=== PATIENT | female | born 1970 | race Caucasian/White ===

== ENCOUNTER 2017-02-16 14:40 | Emergency (ER) | payer MEDICARE, OTHER ==
[2017-02-16 14:48] VITALS: RESP 18; TEMP 98.9
[2017-02-16] MEDS ORDERED: ONDANSETRON 4 MG/2 ML VIAL IVP STA (14:59)
[2017-02-16] MEDS ORDERED: NITROGLYCERIN OINT 1 INCH/GM PACKET TOPICAL STA (14:59)
[2017-02-16] MEDS ORDERED: ASPIRIN 81 MG PO STA (14:59)
[2017-02-16] MEDS ORDERED: SODIUM CHLORIDE 0.9% 1,000 ML IV STA (14:59)
[2017-02-16] MEDS ORDERED: HYDROmorphone 0.5 MG/0.5 ML SYRINGE IVP STA (14:59)
[2017-02-16] MEDS ORDERED: ACETAMINOPHEN TAB 500 MG TAB PO STA (15:01)
--- NOTE | 2017-02-16 15:07 | ED ---
Chest Pain HPI - General Chief Complaint: Chest Pain Stated Complaint: Chest Pain Time Seen by Provider: 02/16/17 14:50 Source: patient Mode of arrival: wheelchair Limitations: no limitations - History of Present Illness Initial Comments: 46 years old female sent from Dr. Usama Betts,s office, she had a chest pain this morning, it lasted for about half an hour she used the nitro and it helped with the pain. He had a stress test done recently. Chest pain has resolved no shortness of breath no pleuritic chest pain no fever no chills. She does have a history of diabetes as well as hypertension and she has smoked for approximately 25 years family history is also significant for coronary artery disease at the past with usual 62 with coronary artery disease. Review of system is unremarkable otherwise - Related Data Home Medications Medication Instructions Recorded Confirmed Albuterol Inhaler [Ventolin Hfa 2 puff INHALATION RT-Q6H PRN 12/20/14 02/16/17 Inhaler] Ergocalciferol (Vitamin D2) 50,000 unit PO Q15D 12/20/14 02/16/17 [Drisdol] Nitroglycerin Sl Tabs [Nitrostat] 0.4 mg SUBLINGUAL Q5M PRN 12/20/14 02/16/17 Tiotropium [place] [Spiriva] 18 mcg INHALATION RT-DAILY 12/20/14 02/16/17 predniSONE 5 mg PO DAILY 12/20/14 02/16/17 DULoxetine HCL [Cymbalta] 90 mg PO DAILY 08/03/15 02/16/17 Fluticasone/Vilanterol [Breo 1 puff INHALATION RT-DAILY 08/03/15 02/16/17 Ellipta 200-25 Mcg INH] Rivaroxaban [Xarelto] 20 mg PO W/SUPPER 08/03/15 02/16/17 Theophylline 24 Hour [Joby-24] 200 mg PO DAILY 08/03/15 02/16/17 Albuterol Nebulized [Ventolin 2.5 mg INHALATION RT-Q6H PRN 09/20/15 02/16/17 Nebulized] Glutamine [l-Glutamine] 500 mg PO DAILY 09/20/15 02/16/17 Ibuprofen [Motrin] 800 mg PO TID PRN 09/20/15 02/16/17 Magnesium Oxide [Mag-Ox] 400 mg PO HS 09/20/15 02/16/17 Diazepam [Valium] 5 mg PO QID PRN 10/03/15 02/16/17 Nystatin 100,000 Unit/ml Susp 5 ml PO QID 10/03/15 02/16/17 [Mycostatin Oral Susp] ARIPiprazole [Abilify] 10 mg PO DAILY 02/16/17 02/16/17 Baclofen [Lioresal] 5 mg PO TID 02/16/17 02/16/17 Calcitonin,[place],Synthetic 1 spray EA NOSTRIL DAILY 02/16/17 02/16/17 [Miacalcin] Cyanocobalamin [Vitamin B-12] 500 mcg PO DAILY 02/16/17 02/16/17 EPINEPHrine (Auto Inject) [Epipen] 0.3 mg IM ONCE PRN 02/16/17 02/16/17 Ferrous Sulfate [Feosol] 325 mg PO BID 02/16/17 02/16/17 Fluticasone Nasal [place] [Flonase 2 spr EA NOSTRIL DAILY 02/16/17 02/16/17 Nasal [place]] Montelukast Sodium [Singulair] 10 mg PO HS 02/16/17 02/16/17 Omeprazole [PriLOSEC] 20 mg PO DAILY 02/16/17 02/16/17 oxyCODONE HCL 15 mg PO Q4H PRN 02/16/17 02/16/17 predniSONE 2 mg PO DAILY 02/16/17 02/16/17 Allergies Allergy/AdvReac Type Severity Reaction Status Date / Time ciprofloxacin Allergy Unknown Unknown Verified 02/16/17 15:33 gabapentin Allergy Unknown Unknown Verified 02/16/17 15:33 acetaminophen [From Tylenol] Allergy Unknown Verified 02/16/17 15:33 cephalexin [From Keflex] Allergy Unknown Verified 02/16/17 15:33 lovastatin Allergy Unknown Verified 02/16/17 15:33 moxifloxacin HCl Allergy Anaphylaxis Verified 02/16/17 15:33 [From Avelox] pravastatin Allergy Unknown Verified 02/16/17 15:33 pregabalin [From Lyrica] Allergy Unknown Verified 02/16/17 15:33 simvastatin Allergy Unknown Verified 02/16/17 15:33 sulfamethoxazole Allergy Unknown Verified 02/16/17 15:33 [From Bactrim] trimethoprim [From Bactrim] Allergy Unknown Verified 02/16/17 15:33 codeine AdvReac Nausea & Verified 02/16/17 15:33 Vomiting verapamil AdvReac Nausea & Verified 02/16/17 15:33 Vomiting Review of Systems ROS Statement: Those systems with pertinent positive or pertinent negative responses have been documented in the HPI. ROS Other: All systems not noted in ROS Statement are negative. EKG Findings - EKG Comments: EKG Findings:: EKG is normal sinus rhythm ventricular rate is 88 MN interval is 122 QRS duration is 88 QT/QTc is 358/09/08/2019 review of this EKG does not reveal any ST elevation or ST depression Past Medical History Past Medical History: Atrial Fibrillation, Asthma, Chest Pain / Angina, COPD, Diabetes Mellitus, Fibromyalgia, GERD/Reflux, Hypertension, Liver Disease, Musculoskeletal Disorder, Osteoarthritis (OA), Pneumonia, Thyroid Disorder Additional Past Medical History / Comment(s): SEE DR MOHAN'S H & P, HX OF KIDNEY STONES, DIET CONTROLLED DIABETES, ANEMIA, ALPHA 1 ANTITRYPSIN DEFICIENCY , NEUROPATHY IN LEGS AND FEET., PNEUMONIA 3 YRS AGO., DDD WITH PAIN IN BACK & NECK. History of Any Multi-Drug Resistant Organisms: MRSA Date of last positivie culture/infection: 2013 MDRO Source:: rt leg Past Surgical History: Breast Surgery, Section, Tubal Ligation, Uterine Ablation Additional Past Surgical History / Comment(s): tumor removed from left breast, biopsy left breast, dayan cataracts - 2 x each eye,. colonoscopy, laparoscopy. CARDIAC ABLATION Past Anesthesia/Blood Transfusion Reactions: No Reported Reaction, Family History of Problems w/ Anesthesia Additional Past Anesthesia/Blood Transfusion Reaction / Comment(s): HX OF BLOOD TRANSFUSION - NO REACTION. SISTER HAS PONV Past Psychological History: Anxiety, Depression, PTSD Smoking Status: Current every day smoker Past Alcohol Use History: None Reported Past Drug Use History: None Reported - Past Family History Mother Family Medical History: Cancer Additional Family Medical History / Comment(s): BREAST CANCER Father Family Medical History: Diabetes Mellitus Additional Family Medical History / Comment(s): ETOH, FROM AN INFECTION. General Exam - General Exam Comments Initial Comments: General: The patient is awake and alert, in no distress, and does not appear acutely ill. Skin: Skin is warm and dry and no rashes or lesions are noted. Eye: Pupils are equal, round and reactive to light, extra-ocular movements are intact; there is normal conjunctiva bilaterally. Ears, nose, mouth and throat: There are moist mucous membranes and no oral lesions. Neck: The neck is supple, there is no tenderness or JVD. Cardiovascular: There is a regular rate and rhythm. No murmur, rub or gallop is appreciated. Respiratory: To auscultation bilateral,exam is consistent with the moderate COPD Gastrointestinal: Soft, non-distended, non-tender abdomen without masses or organomegaly noted. There is no rebound or guarding present. Bowel sounds are unremarkable. Back: There is no tenderness to palpation in the midline. There is no obvious deformity. Musculoskeletal: Normal ROM, no tenderness, There is no pedal edema. There is no calf tenderness or swelling. No cords were appreciated. Neurological: CN II-XII intact, Cranial nerves III through XII are intact. There are no obvious motor or sensory deficits. Coordination appears grossly intact. Speech is normal. Psychiatric: Cooperative, appropriate mood & affect, normal judgment. Limitations: no limitations Course Vital Signs 02/16/17 14:45 Temperature 98.9 F Pulse Rate 98 Respiratory 18 Rate Blood Pressure 135/90 O2 Sat by Pulse 95 Oximetry patient was reassessed at 1600, troponin, EKG, CBC, comprehensive metabolic panel and chest x-ray are unremarkable. Considering her multiple risk factors like hypertension diabetes and family history coronary artery disease and her chest pain episode this morning lasting greater than half an hour recommended 24 hours observation for 3 sets of cardiac markers and cardiology call so she will be admitted to [facility] service Disposition Clinical Impression: Chest pain Disposition: ADMITTED IP TO THIS HOSP Condition: Good Referrals: Usama Betts MD [Primary Care Provider] - 1-2 days
[2017-02-16 15:18] LABS: Basophils # (A) 0.1 k/uL (0-0.2); Basophils % (A) 1 %; CH 27.9; CHCM 33.1; Eosinophils # (A) 0.1 k/uL (0-0.7); Eosinophils % (A) 1 %; HCT 49.3 % (34.0-46.0); HDW 2.63; HGB 15.5 gm/dL (11.4-16.0); Luc # (Auto) 0.07; Luc % (Auto) 1; Lymphocytes # (A) 1.2 k/uL (1.0-4.8); Lymphocytes % (A) 10 %; MCH 26.7 pg (25.0-35.0); MCHC 31.5 g/dL (31.0-37.0); MCV 84.9 fL (80.0-100.0); Mean Platelet Volume 7.5; Monocytes # (A) 0.4 k/uL (0-1.0); Monocytes % (A) 4 %; Neutrophils # (A) 9.4 k/uL (1.3-7.7); Neutrophils % (A) 84 %; RBC 5.81 m/uL (3.80-5.40); RDW 14.9 % (11.5-15.5); WBC 11.2 k/uL (3.8-10.6); WBC (Perox) 11.24
[2017-02-16 15:26] LABS: ALT 37 U/L (9-52); AST 23 U/L (14-36); Alkaline Phosphatase 106 U/L (38-126); Anion Gap 8 mmol/L; Blood Urea Nitrogen 13 mg/dL (7-17); Calcium 9.6 mg/dL (8.4-10.2); Carbon Dioxide 29 mmol/L (22-30); Chloride 103 mmol/L (98-107); Glucose 97 mg/dL (74-99); Magnesium 2.3 mg/dL (1.6-2.3); Non-African American GFR(MDRD) >60 (>60 ml/min/1.73 sqM); Potassium 4.2 mmol/L (3.5-5.1); Sodium 140 mmol/L (137-145); Total Bilirubin 0.3 mg/dL (0.2-1.3); Total Protein 7.1 g/dL (6.3-8.2)
[2017-02-16 15:40] LABS: Creatine Kinase 26 U/L (30-135)
[2017-02-16 15:53] LABS: Creatine Kinase MB 0.7 ng/mL (0.0-2.4); Troponin I <0.012 ng/mL (0.000-0.034)
[2017-02-16 16:05] LABS: Partial Thromboplastin Time 25.8 sec (22.0-30.0); Prothrombin Time 10.5 sec (9.0-12.0)
[2017-02-16] MEDS ORDERED: NITROGLYCERIN SL TABS 0.4 MG TAB SUBLINGUAL PRN ×2 (16:12→16:16)
[2017-02-16] MEDS ORDERED: SODIUM CHLORIDE 0.9% 1,000 ML IV SCH (16:15)
--- NOTE | 2017-02-16 16:15 | XR ---
EXAMINATION TYPE: XR chest 2V DATE OF EXAM: 02/16/2017 COMPARISON: NONE HISTORY: Chest pain TECHNIQUE: Frontal and lateral views of the chest are obtained. FINDINGS: There is no focal air space opacity, pleural effusion, or pneumothorax seen. The cardiac silhouette size is within normal limits. There are overlying cardiac leads. Questionable step-off pos terior lateral right eighth rib. Kyphosis centered near the thoracic lumbar spine. IMPRESSION: Suspect posterior right eighth rib fracture. Correlate for history of trauma.
[2017-02-16] MEDS ORDERED: DIAZEPAM 5 MG TAB PO PRN (16:16)
[2017-02-16] MEDS ORDERED: IBUPROFEN 800 MG TAB PO PRN (16:16)
[2017-02-16] MEDS ORDERED: ALBUTEROL INHALER 60 PUFF/8 GM INHALER INHALATION PRN (16:16)
[2017-02-16] MEDS ORDERED: HYDROmorphone 0.5 MG/0.5 ML SYRINGE IVP PRN (16:16)
[2017-02-16] MEDS ORDERED: ALBUTEROL NEBULIZED 2.5 MG/3 ML INHALATION PRN (16:16)
[2017-02-16] MEDS ORDERED: ERGOCALCIFEROL 50,000 UNIT CAP PO SCH (16:30)
[2017-02-16 16:48] VITALS: BP 133/63; PULSE 107
[2017-02-16] MEDS ORDERED: RIVAROXABAN 10 MG TAB PO SCH (17:30)
[2017-02-16] MEDS ORDERED: NYSTATIN 100,000 UNIT/ML SUSP 500,000 UNIT/5 ML CUP PO SCH (18:00)
[2017-02-16] MEDS ORDERED: MONTELUKAST 10 MG TAB PO SCH (21:00)
[2017-02-16] MEDS ORDERED: FERROUS SULFATE 325 MG TAB PO SCH (21:00)
[2017-02-16] MEDS ORDERED: MAGNESIUM OXIDE 400 MG TAB PO SCH (21:00)
[2017-02-16] MEDS ORDERED: BACLOFEN 10 MG TAB PO SCH (22:00)
[2017-02-17] MEDS ORDERED: PANTOPRAZOLE 40 MG TABLET PO SCH (07:30)
[2017-02-17] MEDS ORDERED: SYMBICORT 160-4.5 MCG INHALER INHALATION SCH (08:00)
[2017-02-17] MEDS ORDERED: IPRATROPIUM 0.5 MG/2.5 ML NEBU INHALATION SCH (08:00)
[2017-02-17] MEDS ORDERED: ASPIRIN 325 MG TAB PO SCH (09:00)
[2017-02-17] MEDS ORDERED: CALCITONIN 200 USP/1 NASAL SPRAY 3.7ML BTL INTRANASAL SCH (09:00)
[2017-02-17] MEDS ORDERED: ARIPiprazole 10 MG TAB PO SCH (09:00)
[2017-02-17] MEDS ORDERED: CYANOCOBALAMIN 500 MCG TAB PO SCH (09:00)
[2017-02-17] MEDS ORDERED: DULoxetine HCL 30 MG CAPSULE.DR PO SCH (09:00)
[2017-02-17] MEDS ORDERED: predniSONE 5 MG TAB PO SCH (09:00)
[2017-02-17] MEDS ORDERED: predniSONE 1 MG TAB PO SCH (09:00)
[2017-02-17] MEDS ORDERED: THEOPHYLLINE 24 HOUR 200 MG CAP.ER.24H PO SCH (09:00)
[2017-02-17] MEDS ORDERED: GLUTAMINE 500 MG PO SCH (09:00)
[2017-02-17] MEDS ORDERED: FLUTICASONE 50MCG/SPRAY NASAL 16GM EA NOSTRIL SCH (09:00)
== END 2017-02-16 17:08 | disposition other institution (70) ==
LOC: EC 14:40 → UNDOADMOB 16:12 → 3OBS 16:12 → EC 17:08
DX: R07.9 Chest pain, unspecified (principal); I48.91 Unspecified atrial fibrillation; J44.9 Chronic obstructive pulmonary disease, unspecified; M79.7 Fibromyalgia; K21.9 Gastro-esophageal reflux disease without esophagitis; I10 Essential (primary) hypertension; M19.90 Unspecified osteoarthritis, unspecified site; E07.9 Disorder of thyroid, unspecified; E11.40 Type 2 diabetes mellitus with diabetic neuropathy, unspecified; F41.9 Anxiety disorder, unspecified; F32.9 Major depressive disorder, single episode, unspecified; F17.200 Nicotine dependence, unspecified, uncomplicated; Z79.52 Long term (current) use of systemic steroids; Z79.51 Long term (current) use of inhaled steroids; Z79.01 Long term (current) use of anticoagulants; Z79.899 Other long term (current) drug therapy; Z88.1 Allergy status to other antibiotic agents; Z88.2 Allergy status to sulfonamides; Z88.5 Allergy status to narcotic agent; Z88.6 Allergy status to analgesic agent; Z88.8 Allergy status to other drugs, medicaments and biological substances
CPT/HCPCS: 99285 ×2; 96374 ×2; 96375 ×2; 96361 ×3; 36415; 93005; 80053; 82550; 82553; 83735; 84484; 85025; 85610; 85730; 71020; J2405; J1170

== ENCOUNTER → 2017-02-25 | Outpatient (CLI) | payer MEDICARE, OTHER ==
--- NOTE | 2017-02-25 10:09 | US ---
EXAMINATION TYPE: US liver DATE OF EXAM: 02/25/2017 COMPARISON: 05/27/2013 CLINICAL HISTORY: E88.01 Alpha 1 Antitrypsin Deficiency. EXAM MEASUREMENTS: Liver Length: 16.9 cm Gallbladder Wall: 0.2 cm CBD: 0.3 cm Right Kidney: 10.3 x 4.5 x 4.8 cm Technically difficult study, morbidly obese patient with a broken rib, unable to scan intercostally. Pancreas: Tail obscured by overlying bowel gas Liver: unable to penetrate, decreased visualization of portal triads suggestive of hepatocellular di sease, upper limits of normal in size Gallbladder: wnl Evidence for sonographic Greco's sign: no CBD: 0.3 Right Kidney: No hydronephrosis or masses seen IMPRESSION: 1. Coarsened heterogenous echotexture compatible with at least mild hepatocellular disease. 2. No sonographic evidence of cholelithiasis or cholecystitis. The previously seen positive sonograph ic Greco sign on the prior examination was not present on today's examination.
[2017-02-25 10:54] LABS: ALT 37 U/L (9-52); AST 21 U/L (14-36); Alkaline Phosphatase 87 U/L (38-126); Anion Gap 8 mmol/L; Blood Urea Nitrogen 16 mg/dL (7-17); Calcium 9.3 mg/dL (8.4-10.2); Carbon Dioxide 31 mmol/L (22-30); Chloride 103 mmol/L (98-107); Glucose 98 mg/dL (74-99); Non-African American GFR(MDRD) >60 (>60 ml/min/1.73 sqM); Potassium 4.1 mmol/L (3.5-5.1); Sodium 142 mmol/L (137-145); Total Bilirubin 0.2 mg/dL (0.2-1.3); Total Protein 6.4 g/dL (6.3-8.2)
[2017-02-25 10:57] LABS: Basophils # (A) 0.1 k/uL (0-0.2); Basophils % (A) 1 %; CH 27.1; CHCM 31.1; Eosinophils # (A) 0.2 k/uL (0-0.7); Eosinophils % (A) 2 %; HCT 49.7 % (34.0-46.0); HDW 2.59; HGB 15.1 gm/dL (11.4-16.0); Hypochromasia Slight; Luc # (Auto) 0.12; Luc % (Auto) 1; Lymphocytes # (A) 1.9 k/uL (1.0-4.8); Lymphocytes % (A) 19 %; MCH 26.6 pg (25.0-35.0); MCHC 30.3 g/dL (31.0-37.0); MCV 87.8 fL (80.0-100.0); Mean Platelet Volume 6.8; Monocytes # (A) 0.5 k/uL (0-1.0); Monocytes % (A) 5 %; Neutrophils # (A) 7.4 k/uL (1.3-7.7); Neutrophils % (A) 73 %; RBC 5.66 m/uL (3.80-5.40); RDW 13.7 % (11.5-15.5); WBC 10.1 k/uL (3.8-10.6); WBC (Perox) 9.92
== END | disposition home or self-care (01) ==
LOC: RADUSWWP 09:05
DX: R93.2 Abnormal findings on diagnostic imaging of liver and biliary tract (principal); E88.01 Alpha-1-antitrypsin deficiency
CPT/HCPCS: 36415; 76705; 80053; 82103; 85025

== ENCOUNTER 2017-08-08 11:01 | Inpatient (IN) | payer MEDICARE, OTHER ==
[2017-08-08] MEDS ORDERED: methylPREDNISolone SOD SUCCI 125 MG/2 ML VIAL IV STA (11:31)
[2017-08-08] MEDS ORDERED: IPRATROPIUM-ALBUTEROL 3 ML NEB INHALATION STA (11:31)
--- NOTE | 2017-08-08 11:55 | ED ---
SOB HPI - General Chief Complaint: Shortness of Breath Stated Complaint: rob, cough Time Seen by Provider: 08/08/17 11:25 Source: patient Mode of arrival: wheelchair Limitations: no limitations - History of Present Illness Initial Comments: Is a 46-year-old female with a history of asthma and emphysema who presents emergency report for worsening shortness of breath, cough, and wheezing. She states that the symptoms started about 4-5 days ago. She was seen by her primary doctor who diagnosed her with acute bronchitis and started her on Augmentin, steroids, and nebulized albuterol. She states that she has been using these therapies without much relief. She states that today she used her albuterol 3 times this morning and it did not improve her symptoms so she decided to come emergency department. The patient is concerned that she may be developing pneumonia. She does continue to smoke despite her diagnoses however has not smoked since being ill. She denies any fevers but does admit to having some chills at home. Her was recently sick with influenza at the beginning of the week. No abdominal pain. No nausea or vomiting. No urinary symptoms. No other acute complaints. - Related Data Home Medications Medication Instructions Recorded Confirmed Albuterol Inhaler [Ventolin Hfa 2 puff INHALATION RT-Q6H PRN 12/20/14 08/08/17 Inhaler] Ergocalciferol (Vitamin D2) 50,000 unit PO Q14D 12/20/14 08/08/17 [Drisdol] Nitroglycerin Sl Tabs [Nitrostat] 0.4 mg SUBLINGUAL Q5M PRN 12/20/14 08/08/17 Tiotropium [place] [Spiriva] 18 mcg INHALATION RT-DAILY 12/20/14 08/08/17 DULoxetine HCL [Cymbalta] 90 mg PO DAILY 08/03/15 08/08/17 Fluticasone/Vilanterol [Breo 1 puff INHALATION RT-DAILY 08/03/15 08/08/17 Ellipta 200-25 Mcg INH] Rivaroxaban [Xarelto] 20 mg PO HS 08/03/15 08/08/17 Theophylline 24 Hour [Joby-24] 200 mg PO HS 08/03/15 08/08/17 Albuterol Nebulized [Ventolin 2.5 mg INHALATION RT-Q6H PRN 09/20/15 08/08/17 Nebulized] Ibuprofen [Motrin] 800 mg PO TID PRN 09/20/15 08/08/17 Magnesium Oxide [Mag-Ox] 400 mg PO HS 09/20/15 08/08/17 Diazepam [Valium] 5 mg PO QID PRN 10/03/15 08/08/17 Nystatin 100,000 Unit/ml Susp 5 ml PO QID 10/03/15 08/08/17 [Mycostatin Oral Susp] Baclofen [Lioresal] 5 mg PO TID PRN 02/16/17 08/08/17 Calcitonin,[place],Synthetic 1 spray EA NOSTRIL DAILY 02/16/17 08/08/17 [Miacalcin] EPINEPHrine (Auto Inject) [Epipen] 0.3 mg IM ONCE PRN 02/16/17 08/08/17 Ferrous Sulfate [Feosol] 325 mg PO DAILY 02/16/17 08/08/17 Fluticasone Nasal [place] [Flonase 2 spr EA NOSTRIL DAILY PRN 02/16/17 08/08/17 Nasal [place]] Montelukast Sodium [Singulair] 10 mg PO HS 02/16/17 08/08/17 Omeprazole [PriLOSEC] 20 mg PO HS 02/16/17 08/08/17 oxyCODONE HCL 15 mg PO Q4H PRN 02/16/17 08/08/17 ARIPiprazole [Abilify] 5 mg PO DAILY 08/08/17 08/08/17 Amoxic-Pot Clav 875-125Mg 1 tab PO Q12HR 08/08/17 08/08/17 [Augmentin 875-125] guaiFENesin [Mucinex] 600 mg PO Q12H 08/08/17 08/08/17 predniSONE 10 mg PO DAILY 08/08/17 08/08/17 Allergies Allergy/AdvReac Type Severity Reaction Status Date / Time ciprofloxacin Allergy Unknown Unknown Verified 08/08/17 12:24 gabapentin Allergy Unknown Unknown Verified 08/08/17 12:24 acetaminophen [From Tylenol] Allergy Unknown Verified 08/08/17 12:24 cephalexin [From Keflex] Allergy Unknown Verified 08/08/17 12:24 lovastatin Allergy Unknown Verified 08/08/17 12:24 moxifloxacin HCl Allergy Anaphylaxis Verified 03/31/18 12:24 [From Avelox] pravastatin Allergy Unknown Verified 08/08/17 12:24 pregabalin [From Lyrica] Allergy Unknown Verified 08/08/17 12:24 simvastatin Allergy Unknown Verified 08/08/17 12:24 sulfamethoxazole Allergy Unknown Verified 08/08/17 12:24 [From Bactrim] trimethoprim [From Bactrim] Allergy Unknown Verified 08/08/17 12:24 codeine AdvReac Nausea & Verified 08/08/17 12:24 Vomiting verapamil AdvReac Nausea & Verified 08/08/17 12:24 Vomiting Review of Systems ROS Statement: Those systems with pertinent positive or pertinent negative responses have been documented in the HPI. ROS Other: All systems not noted in ROS Statement are negative. Past Medical History Past Medical History: Atrial Fibrillation, Asthma, Chest Pain / Angina, COPD, Diabetes Mellitus, Fibromyalgia, GERD/Reflux, Hypertension, Liver Disease, Musculoskeletal Disorder, Osteoarthritis (OA), Pneumonia, Thyroid Disorder Additional Past Medical History / Comment(s): HX OF KIDNEY STONES, DIET CONTROLLED DIABETES, ANEMIA, ALPHA 1 ANTITRYPSIN DEFICIENCY, NEUROPATHY IN LEGS AND FEET., PNEUMONIA 3 YRS AGO., DDD WITH PAIN IN BACK & NECK, RECENT FX RIB RT SIDE "8TH RIB" History of Any Multi-Drug Resistant Organisms: MRSA Date of last positivie culture/infection: 2013 MDRO Source:: rt leg Past Surgical History: Breast Surgery, Section, Tubal Ligation, Uterine Ablation Additional Past Surgical History / Comment(s): tumor removed from left breast, biopsy left breast both benign per pt, dayan cataracts - 2 x each eye,. colonoscopy, laparoscopy.09-24-15 CARDIAC ABLATION Past Anesthesia/Blood Transfusion Reactions: No Reported Reaction, Family History of Problems w/ Anesthesia Additional Past Anesthesia/Blood Transfusion Reaction / Comment(s): HX OF BLOOD TRANSFUSION - NO REACTION. SISTER HAS PONV Past Psychological History: Anxiety, Depression, PTSD Smoking Status: Current every day smoker Past Alcohol Use History: None Reported Past Drug Use History: None Reported - Past Family History Mother Family Medical History: Cancer Additional Family Medical History / Comment(s): BREAST CANCER Father Family Medical History: Diabetes Mellitus Additional Family Medical History / Comment(s): ETOH, FROM AN INFECTION. General Exam - General Exam Comments Initial Comments: Constitutional: Awake alert Appears comfortable Head: Normocephalic atraumatic Eyes: no conjunctival injection No scleral icterus EOMI ENT: TMs clear bilaterally, oropharynx is mildly erythematous without exudate or edema Neck: No JVD Supple Heart: Regular rate rhythm normal S1-S2 no murmurs Lungs: Are bilateral and sternum x-ray wheezes, no respiratory distress, mild conversational dyspnea No rales Abdomen: Soft nondistended nontender Extremities: Non edematous DP pulses intact Radial pulses intact Neuro: A&Ox3 No focal neurologic deficits Psych: Appropriate mood and affect Limitations: no limitations Course Vital Signs 08/08/17 08/08/17 08/08/17 11:10 11:40 11:55 Temperature 98.3 F Pulse Rate 93 92 96 Respiratory 24 Rate Blood Pressure 140/66 O2 Sat by Pulse 91 L Oximetry 08/08/17 12:07 Temperature Pulse Rate 97 Respiratory Rate Blood Pressure O2 Sat by Pulse Oximetry Medical Decision Making - Medical Decision Making Is a 46-year-old female came in for shortness of breath and wheezing. She did have significant wheezing on examination. She was hypoxic in the emergency department 86% at rest and dropped to 78-79% with ambulation. The patient does not of oxygen at home. I'm going to keep her in the hospital for COPD exacerbation. Started on azithromycin. Will be continued on steroids as well. Dr. Turner except see admission would like Dr. Morales to be on the case. The patient was updated the plan and agrees. - Lab Data Result diagrams: 08/08/17 12:00 08/08/17 12:00 Lab Results 08/08/17 08/08/17 Range/Units 12:00 12:00 WBC 9.9 (3.8-10.6) k/uL RBC 5.55 H (3.80-5.40) m/uL Hgb 14.6 (11.4-16.0) gm/dL Hct 46.2 H (34.0-46.0) % MCV 83.2 (80.0-100.0) fL MCH 26.2 (25.0-35.0) pg MCHC 31.6 (31.0-37.0) g/dL RDW 14.9 (11.5-15.5) % Plt Count 292 (150-450) k/uL Neutrophils % 89 % Lymphocytes % 5 % Monocytes % 5 % Eosinophils % 0 % Basophils % 0 % Neutrophils # 8.9 H (1.3-7.7) k/uL Lymphocytes # 0.5 L (1.0-4.8) k/uL Monocytes # 0.5 (0-1.0) k/uL Eosinophils # 0.0 (0-0.7) k/uL Basophils # 0.0 (0-0.2) k/uL Hypochromasia Slight Sodium 146 H (137-145) mmol/L Potassium 4.2 (3.5-5.1) mmol/L Chloride 104 (98-107) mmol/L Carbon Dioxide 30 (22-30) mmol/L Anion Gap 12 mmol/L BUN 16 (7-17) mg/dL Creatinine 0.50 L (0.52-1.04) mg/dL Est GFR (CKD-EPI)AfAm >90 (>60 ml/min/1.73 sqM) Est GFR (CKD-EPI)NonAf >90 (>60 ml/min/1.73 sqM) Glucose 117 H (74-99) mg/dL Calcium 9.4 (8.4-10.2) mg/dL Magnesium 2.5 H (1.6-2.3) mg/dL Total Bilirubin 0.3 (0.2-1.3) mg/dL AST 56 H (14-36) U/L ALT 49 (9-52) U/L Alkaline Phosphatase 79 (38-126) U/L Total Protein 6.4 (6.3-8.2) g/dL Albumin 3.8 (3.5-5.0) g/dL Disposition Clinical Impression: COPD exacerbation Disposition: ADMITTED IP TO THIS HOSP Condition: Stable
[2017-08-08 12:09] LABS: Basophils % (A) 0 %; Eosinophils % (A) 0 %; HCT 46.2 % (34.0-46.0); HGB 14.6 gm/dL (11.4-16.0); Hypochromasia Slight; Lymphocytes # (A) 0.5 k/uL (1.0-4.8); Lymphocytes % (A) 5 %; MCH 26.2 pg (25.0-35.0); MCHC 31.6 g/dL (31.0-37.0); MCV 83.2 fL (80.0-100.0); Mean Platelet Volume 7.4; Monocytes # (A) 0.5 k/uL (0-1.0); Monocytes % (A) 5 %; Neutrophils # (A) 8.9 k/uL (1.3-7.7); Neutrophils % (A) 89 %; Platelet Count 292 k/uL (150-450); RBC 5.55 m/uL (3.80-5.40); RDW 14.9 % (11.5-15.5); WBC 9.9 k/uL (3.8-10.6)
[2017-08-08 12:19] LABS: ALT 49 U/L (9-52); AST 56 U/L (14-36); Albumin 3.8 g/dL (3.5-5.0); Alkaline Phosphatase 79 U/L (38-126); Anion Gap 12 mmol/L; Blood Urea Nitrogen 16 mg/dL (7-17); Calcium 9.4 mg/dL (8.4-10.2); Carbon Dioxide 30 mmol/L (22-30); Chloride 104 mmol/L (98-107); Glucose 117 mg/dL (74-99); Magnesium 2.5 mg/dL (1.6-2.3); Potassium 4.2 mmol/L (3.5-5.1); Sodium 146 mmol/L (137-145); Total Bilirubin 0.3 mg/dL (0.2-1.3); Total Protein 6.4 g/dL (6.3-8.2)
--- NOTE | 2017-08-08 12:45 | XR ---
EXAMINATION TYPE: XR chest 2V DATE OF EXAM: 08/08/2017 HISTORY: Pain. REFERENCE: Previous study dated 02/16/2017. FINDINGS: The heart is mildly prominent. The lungs are clear. There is blunting of the right CP angle and to a lesser extent the left CP angle. Pulmonary vasculature is normal. There is underlying COPD. IMPRESSION: 1. COPD. 2. MILD CARDIOMEGALY. 3. SMALL, BILATERAL EFFUSIONS.
[2017-08-08] MEDS ORDERED: AZITHROMYCIN 500 MG in SODIUM CHLORIDE 0.9% 250 ML IVPB STA (12:46)
[2017-08-08] MEDS ORDERED: DIAZEPAM 5 MG TAB PO PRN (13:13)
[2017-08-08] MEDS ORDERED: FLUTICASONE 50MCG/SPRAY NASAL 16GM EA NOSTRIL PRN (13:13)
[2017-08-08] MEDS ORDERED: BACLOFEN 10 MG TAB PO PRN (13:13)
[2017-08-08] MEDS ORDERED: NITROGLYCERIN SL TABS 0.4 MG TAB SUBLINGUAL PRN (13:13)
[2017-08-08] MEDS ORDERED: ERGOCALCIFEROL 50,000 UNIT CAP PO SCH (14:00)
[2017-08-08 14:12] VITALS: BMI 36.6
[2017-08-08] MEDS: guaiFENesin 600 MG TABLET.ER PO SCH (15:55)
[2017-08-08] MEDS: NYSTATIN 100,000 UNIT/ML SUSP 500,000 UNIT/5 ML CUP PO SCH ×2 (15:56→20:41)
[2017-08-08] MEDS: OSELTAMIVIR 75 MG CAP PO SCH (15:56)
[2017-08-08] MEDS: methylPREDNISolone SOD SUCCI 125 MG/2 ML VIAL IV SCH (15:57)
--- NOTE | 2017-08-08 16:36 | P.HPIM ---
History of Present Illness H&P Date: 08/08/17 Chief Complaint: Difficulty breathing This is a 46-year-old female one of Dr. Duke with a previous medical history significant for hypertension and hypertensive cardio vascular disease with left ventricular hypertrophy, diabetes mellitus type 2, history of the atrial fibrillation status post ablation back in 2017, alpha-1 antitrypsin deficiency, fibromyalgia, degenerative disc disease of the cervical spine currently on the pain management, depressive disorder and anxiety disorder along with severe persistent asthma steroid dependent, he shouldn't apparently was seen by Dr. Betts about a week ago because of her urinary tract infection and she was placed on Augmentin she was supposed to have one more day of that, however she called the office yesterday and the stated that she is getting more shortness of breath, she was exposed to what appears to be the flu recently, she ended up the raising her prednisone to 50 mg a day without any relief despite using the nebulized treatment, she ended up coming to the ER at [facility] today with significant shortness of breath and increased coughing, had flu swab came back negative for if was a she was immediately placed in droplet precautions and was started on Tamiflu 75 mg orally twice every day, she was kept on Zithromax and Solu-Medrol along with nebulized treatment, pulmonary consultation was obtained from Dr. Morales. Review of Systems Constitutional: Reports chronic pain, Reports weight gain, Denies anorexia, Denies chronic headaches, Denies lethargy, Denies malaise, Denies night sweats, Denies weakness, Denies weight loss Eyes: denies blurred vision, denies bulging eye, denies decreased vision, denies diplopia Ears: deny: decreased hearing Ears, nose, mouth and throat: Denies dysphagia, Denies neck lump, Denies swelling in throat, Denies sore throat Cardiovascular: Reports decreased exercise tolerance, Reports dyspnea on exertion, Reports high blood pressure, Reports shortness of breath, Denies chest pain, Denies phlebitis, Denies rapid heart beat, Denies syncope Respiratory: Reports congestion, Reports cough, Reports cough with sputum, Reports wheezing, Denies home oxygen, Denies sleep apnea, Denies snoring Gastrointestinal: Denies abdominal pain, Denies bloating, Denies BRBPR, Denies excessive gas, Denies heartburn, Denies melena, Denies nausea, Denies vomiting Genitourinary: Denies dysuria, Denies hematuria Musculoskeletal: Reports frequent falls, Denies myalgias Musculoskeletal: absent: ankle pain, ankle stiffness, ankle swelling, elbow pain , elbow stiffness, elbow swelling, foot pain, foot stiffness, foot swelling, hand pain, hand stiffness, hand swelling, hip pain, hip stiffness, hip swelling , knee pain, knee stiffness, knee swelling, shoulder pain, shoulder stiffness, shoulder swelling, wrist pain, wrist stiffness, wrist swelling Integumentary: Denies pruritus, Denies rash Neurological: Denies numbness, Denies weakness Psychiatric: Reports anxiety, Reports depression, Denies sadness/tearfulness, Denies sleep disturbances, Denies suicidal ideation Endocrine: Denies fatigue, Denies weight change Past Medical History Past Medical History: Atrial Fibrillation, Asthma, Chest Pain / Angina, COPD, Diabetes Mellitus, Fibromyalgia, GERD/Reflux, Hypertension, Liver Disease, Musculoskeletal Disorder, Osteoarthritis (OA), Pneumonia, Thyroid Disorder Additional Past Medical History / Comment(s): HX OF KIDNEY STONES, DIET CONTROLLED DIABETES, ANEMIA, ALPHA 1 ANTITRYPSIN DEFICIENCY, NEUROPATHY IN LEGS AND FEET., PNEUMONIA 3 YRS AGO., DDD WITH PAIN IN BACK & NECK, RECENT FX RIB RT SIDE "8TH RIB" History of Any Multi-Drug Resistant Organisms: MRSA Date of last positivie culture/infection: 2013 MDRO Source:: rt leg Past Surgical History: Breast Surgery, Section, Tubal Ligation, Uterine Ablation Additional Past Surgical History / Comment(s): tumor removed from left breast, biopsy left breast both benign per pt, dayan cataracts - 2 x each eye,. colonoscopy, laparoscopy.09-24-15 CARDIAC ABLATION Past Anesthesia/Blood Transfusion Reactions: No Reported Reaction, Family History of Problems w/ Anesthesia Additional Past Anesthesia/Blood Transfusion Reaction / Comment(s): HX OF BLOOD TRANSFUSION - NO REACTION. SISTER HAS PONV Past Psychological History: Anxiety, Depression, PTSD Smoking Status: Current every day smoker (patient used to smoke a pack every day she is currently down to half pack every day she smoked for about 30 years) Past Alcohol Use History: None Reported Past Drug Use History: None Reported - Past Family History Mother Family Medical History: Cancer (mother is 62-year-old has history of hypertension as well as breast cancer.), Hypertension Additional Family Medical History / Comment(s): BREAST CANCER Father Family Medical History: Diabetes Mellitus (father at age 58 from diabetes mellitus complication and he had a history of hypertension and CAD as well.) Additional Family Medical History / Comment(s): ETOH, FROM AN INFECTION. Brother(s) Family Medical History: No Reported History (patient has one brother no major medical problems.) Sister(s) Family Medical History: No Reported History (he shouldn't has 2 sisters no major medical problems.) Son(s) Family Medical History: No Reported History (patient has 2 sons no major medical problems.) Daughter(s) Family Medical History: No Reported History (patient has one daughter no major medical problems.) Medications and Allergies Home Medications Medication Instructions Recorded Confirmed Type Albuterol Inhaler [Ventolin Hfa 2 puff INHALATION RT-Q6H PRN 12/20/14 08/08/17 History Inhaler] Ergocalciferol (Vitamin D2) 50,000 unit PO Q14D 12/20/14 08/08/17 History [Drisdol] Nitroglycerin Sl Tabs [Nitrostat] 0.4 mg SUBLINGUAL Q5M PRN 12/20/14 08/08/17 History Tiotropium [place] [Spiriva] 18 mcg INHALATION RT-DAILY 12/20/14 08/08/17 History DULoxetine HCL [Cymbalta] 90 mg PO DAILY 08/03/15 08/08/17 History Fluticasone/Vilanterol [Breo 1 puff INHALATION RT-DAILY 08/03/15 08/08/17 History Ellipta 200-25 Mcg INH] Rivaroxaban [Xarelto] 20 mg PO HS 08/03/15 08/08/17 History Theophylline 24 Hour [Joby-24] 200 mg PO HS 08/03/15 08/08/17 History Albuterol Nebulized [Ventolin 2.5 mg INHALATION RT-Q6H PRN 09/20/15 08/08/17 History Nebulized] Ibuprofen [Motrin] 800 mg PO TID PRN 09/20/15 08/08/17 History Magnesium Oxide [Mag-Ox] 400 mg PO HS 09/20/15 08/08/17 History Diazepam [Valium] 5 mg PO QID PRN 10/03/15 08/08/17 History Nystatin 100,000 Unit/ml Susp 5 ml PO QID 10/03/15 08/08/17 History [Mycostatin Oral Susp] Baclofen [Lioresal] 5 mg PO TID PRN 02/16/17 08/08/17 History Calcitonin,[place],Synthetic 1 spray EA NOSTRIL DAILY 02/16/17 08/08/17 History [Miacalcin] EPINEPHrine (Auto Inject) [Epipen] 0.3 mg IM ONCE PRN 02/16/17 08/08/17 History Ferrous Sulfate [Feosol] 325 mg PO DAILY 02/16/17 08/08/17 History Fluticasone Nasal [place] [Flonase 2 spr EA NOSTRIL DAILY PRN 02/16/17 08/08/17 History Nasal [place]] Montelukast Sodium [Singulair] 10 mg PO HS 02/16/17 08/08/17 History Omeprazole [PriLOSEC] 20 mg PO HS 02/16/17 08/08/17 History oxyCODONE HCL 15 mg PO Q4H PRN 02/16/17 08/08/17 History ARIPiprazole [Abilify] 5 mg PO DAILY 08/08/17 08/08/17 History Amoxic-Pot Clav 875-125Mg 1 tab PO Q12HR 08/08/17 08/08/17 History [Augmentin 875-125] guaiFENesin [Mucinex] 600 mg PO Q12H 08/08/17 08/08/17 History predniSONE 10 mg PO DAILY 08/08/17 08/08/17 History Allergies Allergy/AdvReac Type Severity Reaction Status Date / Time ciprofloxacin Allergy Unknown Unknown Verified 08/08/17 12:24 gabapentin Allergy Unknown Unknown Verified 08/08/17 12:24 acetaminophen [From Tylenol] Allergy Unknown Verified 08/08/17 12:24 cephalexin [From Keflex] Allergy Unknown Verified 08/08/17 12:24 lovastatin Allergy Unknown Verified 08/08/17 12:24 moxifloxacin HCl Allergy Anaphylaxis Verified 08/08/17 12:24 [From Avelox] pravastatin Allergy Unknown Verified 08/08/17 12:24 pregabalin [From Lyrica] Allergy Unknown Verified 08/08/17 12:24 simvastatin Allergy Unknown Verified 08/08/17 12:24 sulfamethoxazole Allergy Unknown Verified 08/08/17 12:24 [From Bactrim] trimethoprim [From Bactrim] Allergy Unknown Verified 08/08/17 12:24 codeine AdvReac Nausea & Verified 08/08/17 12:24 Vomiting verapamil AdvReac Nausea & Verified 08/08/17 12:24 Vomiting Physical Exam Vitals: Vital Signs Temp Pulse Resp BP Pulse Ox 08/08/17 12:07 97 08/08/17 11:55 96 08/08/17 11:40 92 08/08/17 11:10 98.3 F 93 24 140/66 91 L Intake and Output 08/07/17 08/08/17 08/08/17 22:59 06:59 14:59 Other: Weight 106.141 kg - Constitutional General appearance: average body habitus, mild distress - EENT Eyes: anicteric sclerae, EOMI, PERRLA, no ptosis, no scleral icterus, normal appearance ENT: hearing grossly normal, NA/AT, normal oropharynx, no thrush Ears: bilateral: normal - Neck Neck: no lymphadenopathy, normal ROM, no rigidity, no stridor, no thyromegaly Carotids: bilateral: upstroke normal Thyroid: bilateral: normal size - Respiratory Respiratory: bilateral: diminished, wheezing, prolonged expiration, negative: dullness, rales, rhonchi - Cardiovascular Rhythm: regular Heart sounds: normal: S1, S2 Abnormal Heart Sounds: systolic murmur - Gastrointestinal General gastrointestinal: normal bowel sounds, soft, no splenomegaly, no tenderness, no umbilical hernia, no ventral hernia - Integumentary Integumentary: normal, normal turgor - Neurologic Neurologic: CNII-XII intact - Musculoskeletal Musculoskeletal: strength equal bilaterally - Psychiatric Psychiatric: A&O x's 3, appropriate affect, intact judgment & insight Results CBC & Chem 7: 08/08/17 12:00 08/08/17 12:00 Labs: Abnormal Lab Results - Last 24 Hours (Table) 08/08/17 08/08/17 Range/Units 12:00 12:00 RBC 5.55 H (3.80-5.40) m/uL Hct 46.2 H (34.0-46.0) % Neutrophils # 8.9 H (1.3-7.7) k/uL Lymphocytes # 0.5 L (1.0-4.8) k/uL Sodium 146 H (137-145) mmol/L Creatinine 0.50 L (0.52-1.04) mg/dL Glucose 117 H (74-99) mg/dL Magnesium 2.5 H (1.6-2.3) mg/dL AST 56 H (14-36) U/L Thrombosis Risk Factor Assmnt - DVT/VTE Prophylaxis DVT/VTE Prophylaxis: Pharmacologic Prophylaxis ordered, Mechanical Prophylaxis ordered Assessment and Plan Assessment: Assessment and plan: 1. Acute respiratory failure secondary to acute asthma exacerbation, treated by acute bronchitis with influenza A. IV fluid resuscitation, Tamiflu 75 mg orally twice every day for 5 days, Zithromax 500 mg IV piggyback every 24 hours , Solu-Medrol 60 mg IV push every 6 hours, DuoNeb 3 mL nebulization 4 times every day, Breo-Ellipta daily,'s. The daily, pulmonary consultation, droplet precautions. 2. Severe persistent asthma. Continue treatment as in paragraph #1. 3. Influenza A. Continue Tamiflu 75 mg orally twice every day for 5 days consider treating exposures. 4. Diabetes mellitus type 2. Continue patient on sliding scale insulin. 5. Degenerative disc disease of the cervical spine with a chronic pain syndrome. Continue patient on oxycodone 15 mg orally every 4 hours as needed, Valium 5 mg orally 4 times every day as needed, Flexeril 5 mg orally 3 times every day as needed. 6. Fibromyalgia. Continue Cymbalta 90 mg orally once every day. 7. Depressive disorder. Continue Cymbalta 90 mg orally once every day and Abilify 5 mg orally once every day. 8. Chronic tobacco use and dependence. Continue patient on the nicotine patch , smoking cessation and counseling an increased risk of CAD, CVA, and malignancy. 9. Vitamin D deficiency. Continue patient on vitamin D to 50,000 units once every week. 10. Anemia. Continue patient on iron once every day. 11. ALLERGIC rhinitis. Continue Flonase as well as singular 10 mg at bedtime. 12. Alpha I antitrypsin deficiency. Stable. 13. Atrial fibrillation post-ablation. Continue Xarelto 20 mg orally once every day. 14. DVT prophylaxis. Currently on Xarelto, add bilateral knee-high DENNIS hose. 15. GI prophylaxis. Continue with PPI. 16. Admit to inpatient. Estimated length of stay 2 midnights. 17. Patient is full code.
[2017-08-08 16:51] LABS: Glucose,Whole Blood 234 mg/dL (75-99)
[2017-08-08] MEDS: IPRATROPIUM-ALBUTEROL 3 ML NEB INHALATION PRN ×2 (16:57→20:46)
[2017-08-08] MEDS ORDERED: RIVAROXABAN 20 MG TAB PO SCH (21:00)
[2017-08-08] MEDS ORDERED: PANTOPRAZOLE 40 MG TABLET PO SCH (21:00)
[2017-08-08] MEDS ORDERED: MONTELUKAST 10 MG TAB PO SCH (21:00)
[2017-08-08] MEDS ORDERED: THEOPHYLLINE 24 HOUR 200 MG CAP.ER.24H PO SCH (21:00)
[2017-08-08] MEDS ORDERED: MAGNESIUM OXIDE 400 MG TAB PO SCH (21:00)
[2017-08-09] MEDS: methylPREDNISolone SOD SUCCI 125 MG/2 ML VIAL IV SCH ×3 (00:14→12:13)
[2017-08-09] MEDS: OSELTAMIVIR 75 MG CAP PO SCH ×2 (02:13→12:14)
[2017-08-09] MEDS: guaiFENesin 600 MG TABLET.ER PO SCH ×2 (02:13→12:14)
[2017-08-09] MEDS: IPRATROPIUM 0.5 MG/2.5 ML NEBU INHALATION SCH ×2 (07:25→10:56)
[2017-08-09] MEDS: IPRATROPIUM-ALBUTEROL 3 ML NEB INHALATION PRN ×2 (07:25→10:56)
[2017-08-09 07:38] VITALS: BP 144/93; RESP 18; TEMP 97
[2017-08-09] MEDS ORDERED: SYMBICORT 160-4.5 MCG INHALER INHALATION SCH (08:00)
[2017-08-09] MEDS: INSULIN ASPART 100 UNIT/ML 1 ML 10 ML VIAL SQ SCH ×2 (08:35→12:32)
[2017-08-09] MEDS: NYSTATIN 100,000 UNIT/ML SUSP 500,000 UNIT/5 ML CUP PO SCH ×2 (08:38→12:14)
[2017-08-09] MEDS ORDERED: NICOTINE 14MG/24HR PATCH TRANSDERM SCH (09:00)
[2017-08-09] MEDS ORDERED: CALCITONIN 200 USP/1 NASAL SPRAY 3.7ML BTL INTRANASAL SCH (09:00)
[2017-08-09] MEDS ORDERED: DULoxetine HCL 30 MG CAPSULE.DR PO SCH (09:00)
[2017-08-09] MEDS ORDERED: ARIPiprazole 5 MG TAB PO SCH (09:00)
--- NOTE | 2017-08-09 10:26 | P.PN ---
Subjective Progress Note Date: 08/09/17 This is a 46-year-old female one of Dr. Duke with a previous medical history significant for hypertension and hypertensive cardio vascular disease with left ventricular hypertrophy, diabetes mellitus type 2, history of the atrial fibrillation status post ablation back in 2017, alpha-1 antitrypsin deficiency, fibromyalgia, degenerative disc disease of the cervical spine currently on the pain management, depressive disorder and anxiety disorder along with severe persistent asthma steroid dependent, he shouldn't apparently was seen by Dr. Betts about a week ago because of her urinary tract infection and she was placed on Augmentin she was supposed to have one more day of that, however she called the office yesterday and the stated that she is getting more shortness of breath, she was exposed to what appears to be the flu recently, she ended up the raising her prednisone to 50 mg a day without any relief despite using the nebulized treatment, she ended up coming to the ER at [facility] today with significant shortness of breath and increased coughing, had flu swab came back negative for if was a she was immediately placed in droplet precautions and was started on Tamiflu 75 mg orally twice every day, she was kept on Zithromax and Solu-Medrol along with nebulized treatment, pulmonary consultation was obtained from Dr. Morales. 08/09: Patient is feeling a bit better today she is asking to go home on today she continues to have significant expiratory wheezes at this point she was treated with Tamiflu along with the bronchodilator and IV steroid she will be seen by Dr. Morales in the office tomorrow morning, patient is aware of her condition and she is to return to ER if she developed to have significant respiratory failure. Objective - Vital Signs Vital signs: Vital Signs Temp 97.2 F L 08/08/17 23:00 Pulse 88 08/09/17 07:29 Resp 17 08/08/17 23:00 BP 148/76 08/08/17 15:00 Pulse Ox 97 08/09/17 07:29 Intake & Output 08/08/17 08/09/17 08/09/17 18:59 06:59 18:59 Intake Total 250 1320 Balance 250 1320 Weight 106.141 kg 106.141 kg Intake: Intake, IV Titration 250 Amount Azithromycin 500 mg In 250 Sodium Chloride 0.9% 250 ml @ 125 mls/hr IVPB ONCE STA Rx#:[id number] Oral 1320 Other: # Voids 1 - Exam - Constitutional General appearance: average body habitus, mild distress - EENT Eyes: anicteric sclerae, EOMI, PERRLA, no ptosis, no scleral icterus, normal appearance ENT: hearing grossly normal, NA/AT, normal oropharynx, no thrush Ears: bilateral: normal - Neck Neck: no lymphadenopathy, normal ROM, no rigidity, no stridor, no thyromegaly Carotids: bilateral: upstroke normal Thyroid: bilateral: normal size - Respiratory Respiratory: bilateral: diminished, wheezing, prolonged expiration, negative: dullness, rales, rhonchi - Cardiovascular Rhythm: regular Heart sounds: normal: S1, S2 Abnormal Heart Sounds: systolic murmur - Gastrointestinal General gastrointestinal: normal bowel sounds, soft, no splenomegaly, no tenderness, no umbilical hernia, no ventral hernia - Integumentary Integumentary: normal, normal turgor - Neurologic Neurologic: CNII-XII intact - Musculoskeletal Musculoskeletal: strength equal bilaterally - Psychiatric Psychiatric: A&O x's 3, appropriate affect, intact judgment & insight - Labs CBC & Chem 7: 08/08/17 12:00 08/08/17 12:00 Labs: Abnormal Lab Results - Last 24 Hours (Table) 08/08/17 08/08/17 08/08/17 Range/Units 12:00 12:00 14:20 RBC 5.55 H (3.80-5.40) m/uL Hct 46.2 H (34.0-46.0) % Neutrophils # 8.9 H (1.3-7.7) k/uL Lymphocytes # 0.5 L (1.0-4.8) k/uL Sodium 146 H (137-145) mmol/L Creatinine 0.50 L (0.52-1.04) mg/dL Glucose 117 H (74-99) mg/dL POC Glucose (mg/dL) (75-99) mg/dL Magnesium 2.5 H (1.6-2.3) mg/dL AST 56 H (14-36) U/L Influenza Type A RNA Detected H (Not Detectd) 08/08/17 Range/Units 16:49 RBC (3.80-5.40) m/uL Hct (34.0-46.0) % Neutrophils # (1.3-7.7) k/uL Lymphocytes # (1.0-4.8) k/uL Sodium (137-145) mmol/L Creatinine (0.52-1.04) mg/dL Glucose (74-99) mg/dL POC Glucose (mg/dL) 234 H (75-99) mg/dL Magnesium (1.6-2.3) mg/dL AST (14-36) U/L Influenza Type A RNA (Not Detectd) Assessment and Plan Assessment: Assessment and plan: 1. Acute respiratory failure secondary to acute asthma exacerbation, treated by acute bronchitis with influenza A. IV fluid resuscitation, Tamiflu 75 mg orally twice every day for 5 days, Zithromax 500 mg IV piggyback every 24 hours , Solu-Medrol 60 mg IV push every 6 hours, DuoNeb 3 mL nebulization 4 times every day, Breo-Ellipta daily,'s. The daily, pulmonary consultation, droplet precautions. 2. Severe persistent asthma. Continue treatment as in paragraph #1. 3. Influenza A. Continue Tamiflu 75 mg orally twice every day for 5 days consider treating exposures. 4. Diabetes mellitus type 2. Continue patient on sliding scale insulin. 5. Degenerative disc disease of the cervical spine with a chronic pain syndrome. Continue patient on oxycodone 15 mg orally every 4 hours as needed, Valium 5 mg orally 4 times every day as needed, Flexeril 5 mg orally 3 times every day as needed. 6. Fibromyalgia. Continue Cymbalta 90 mg orally once every day. 7. Depressive disorder. Continue Cymbalta 90 mg orally once every day and Abilify 5 mg orally once every day. 8. Chronic tobacco use and dependence. Continue patient on the nicotine patch , smoking cessation and counseling an increased risk of CAD, CVA, and malignancy. 9. Vitamin D deficiency. Continue patient on vitamin D to 50,000 units once every week. 10. Anemia. Continue patient on iron once every day. 11. ALLERGIC rhinitis. Continue Flonase as well as singular 10 mg at bedtime. 12. Alpha I antitrypsin deficiency. Stable. 13. Atrial fibrillation post-ablation. Continue Xarelto 20 mg orally once every day. 14. DVT prophylaxis. Currently on Xarelto, add bilateral knee-high DENNIS hose. 15. GI prophylaxis. Continue with PPI. 16. Discharge the patient home and follow-up with Dr. Morales tomorrow morning.
--- NOTE | 2017-08-09 10:28 | P.DS ---
Providers Date of admission: 08/08/17 12:47 Expected date of discharge: 08/09/17 Attending physician: Concepcion Turner Consults: 08/08/17 12:47 Consult Physician Routine Consulting Provider: Judah Morales Consult Reason/Comments: COPD exacerbation Do you want consulting provider notified?: Yes Primary care physician: Usama Betts [place] Course: This is a 46-year-old female one of Dr. Duke with a previous medical history significant for hypertension and hypertensive cardio vascular disease with left ventricular hypertrophy, diabetes mellitus type 2, history of the atrial fibrillation status post ablation back in 2017, alpha-1 antitrypsin deficiency, fibromyalgia, degenerative disc disease of the cervical spine currently on the pain management, depressive disorder and anxiety disorder along with severe persistent asthma steroid dependent, he shouldn't apparently was seen by Dr. Betts about a week ago because of her urinary tract infection and she was placed on Augmentin she was supposed to have one more day of that, however she called the office yesterday and the stated that she is getting more shortness of breath, she was exposed to what appears to be the flu recently, she ended up the raising her prednisone to 50 mg a day without any relief despite using the nebulized treatment, she ended up coming to the ER at [facility] today with significant shortness of breath and increased coughing, had flu swab came back negative for if was a she was immediately placed in droplet precautions and was started on Tamiflu 75 mg orally twice every day, she was kept on Zithromax and Solu-Medrol along with nebulized treatment, pulmonary consultation was obtained from Dr. Morales. 08/09: Patient is feeling a bit better today she is asking to go home on today she continues to have significant expiratory wheezes at this point she was treated with Tamiflu along with the bronchodilator and IV steroid she will be seen by Dr. Morales in the office tomorrow morning, patient is aware of her condition and she is to return to ER if she developed to have significant respiratory failure. Discharge diagnoses: 1. Acute respiratory failure secondary to acute asthma exacerbation, . 2. Severe persistent asthma. 3. Influenza A. 4. Diabetes mellitus type 2. 5. Degenerative disc disease of the cervical spine with a chronic pain syndrome. 6. Fibromyalgia. 7. Depressive disorder. 8. Chronic tobacco use and dependence. 9. Vitamin D deficiency. 10. Anemia. 11. ALLERGIC rhinitis. 12. Alpha I antitrypsin deficiency. 13. Atrial fibrillation post-ablation. Patient Condition at Discharge: Fair Plan - Discharge Summary New Discharge Prescriptions: No Action Nitroglycerin Sl Tabs [Nitrostat] 0.4 mg SUBLINGUAL Q5M PRN PRN Reason: Chest Pain Ergocalciferol (Vitamin D2) [Drisdol] 50,000 unit PO Q14D Albuterol Inhaler [Ventolin Hfa Inhaler] 2 puff INHALATION RT-Q6H PRN PRN Reason: Shortness Of Breath Tiotropium [place] [Spiriva] 18 mcg INHALATION RT-DAILY Fluticasone/Vilanterol [Breo Ellipta 200-25 Mcg INH] 1 puff INHALATION RT- DAILY Theophylline 24 Hour [Joby-24] 200 mg PO HS DULoxetine HCL [Cymbalta] 90 mg PO DAILY Rivaroxaban [Xarelto] 20 mg PO HS Magnesium Oxide [Mag-Ox] 400 mg PO HS Albuterol Nebulized [Ventolin Nebulized] 2.5 mg INHALATION RT-Q6H PRN PRN Reason: Shortness Of Breath Ibuprofen [Motrin] 800 mg PO TID PRN PRN Reason: Pain Nystatin 100,000 Unit/ml Susp [Mycostatin Oral Susp] 5 ml PO QID Diazepam [Valium] 5 mg PO QID PRN PRN Reason: Anxiety Omeprazole [PriLOSEC] 20 mg PO HS Baclofen [Lioresal] 5 mg PO TID PRN PRN Reason: Muscle Pain Ferrous Sulfate [Feosol] 325 mg PO DAILY oxyCODONE HCL 15 mg PO Q4H PRN PRN Reason: Pain Montelukast Sodium [Singulair] 10 mg PO HS Fluticasone Nasal [place] [Flonase Nasal [place]] 2 spr EA NOSTRIL DAILY PRN PRN Reason: seasonal allergies EPINEPHrine (Auto Inject) [Epipen] 0.3 mg IM ONCE PRN PRN Reason: Anaphylaxis Calcitonin,[place],Synthetic [Miacalcin] 1 spray EA NOSTRIL DAILY ARIPiprazole [Abilify] 5 mg PO DAILY Amoxic-Pot Clav 875-125Mg [Augmentin 875-125] 1 tab PO Q12HR predniSONE 10 mg PO DAILY guaiFENesin [Mucinex] 600 mg PO Q12H Discharge Medication List Albuterol Inhaler [Ventolin Hfa Inhaler] 2 puff INHALATION RT-Q6H PRN 12/20/14 [ History] Ergocalciferol (Vitamin D2) [Drisdol] 50,000 unit PO Q14D 12/20/14 [History] Nitroglycerin Sl Tabs [Nitrostat] 0.4 mg SUBLINGUAL Q5M PRN 12/20/14 [History] Tiotropium [place] [Spiriva] 18 mcg INHALATION RT-DAILY 12/20/14 [History] DULoxetine HCL [Cymbalta] 90 mg PO DAILY 08/03/15 [History] Fluticasone/Vilanterol [Breo Ellipta 200-25 Mcg INH] 1 puff INHALATION RT-DAILY 08/03/15 [History] Rivaroxaban [Xarelto] 20 mg PO HS 08/03/15 [History] Theophylline 24 Hour [Joby-24] 200 mg PO HS 08/03/15 [History] Albuterol Nebulized [Ventolin Nebulized] 2.5 mg INHALATION RT-Q6H PRN 09/20/15 [ History] Ibuprofen [Motrin] 800 mg PO TID PRN 09/20/15 [History] Magnesium Oxide [Mag-Ox] 400 mg PO HS 09/20/15 [History] Diazepam [Valium] 5 mg PO QID PRN 10/03/15 [History] Nystatin 100,000 Unit/ml Susp [Mycostatin Oral Susp] 5 ml PO QID 10/03/15 [ History] Baclofen [Lioresal] 5 mg PO TID PRN 02/16/17 [History] Calcitonin,[place],Synthetic [Miacalcin] 1 spray EA NOSTRIL DAILY 02/16/17 [ History] EPINEPHrine (Auto Inject) [Epipen] 0.3 mg IM ONCE PRN 02/16/17 [History] Ferrous Sulfate [Feosol] 325 mg PO DAILY 02/16/17 [History] Fluticasone Nasal [place] [Flonase Nasal [place]] 2 spr EA NOSTRIL DAILY PRN [History] Montelukast Sodium [Singulair] 10 mg PO HS 02/16/17 [History] Omeprazole [PriLOSEC] 20 mg PO HS 02/16/17 [History] oxyCODONE HCL 15 mg PO Q4H PRN 02/16/17 [History] ARIPiprazole [Abilify] 5 mg PO DAILY 08/08/17 [History] Amoxic-Pot Clav 875-125Mg [Augmentin 875-125] 1 tab PO Q12HR 08/08/17 [History] guaiFENesin [Mucinex] 600 mg PO Q12H 08/08/17 [History] predniSONE 10 mg PO DAILY 08/08/17 [History]
[2017-08-09 11:30] VITALS: PULSE 77
[2017-08-09] MEDS ORDERED: AZITHROMYCIN 500 MG TAB PO SCH (12:00)
[2017-08-09] MEDS ORDERED: FERROUS SULFATE 325 MG TAB PO SCH (12:00)
[2017-08-09 12:31] LABS: Glucose,Whole Blood 117 mg/dL (75-99)
--- NOTE | 2017-08-09 13:10 | P.CNPUL ---
History of Present Illness Consult date: 08/08/17 Reason for consult: dyspnea History of present illness: 6-year-old female patient with known history of COPD/asthma who came into the emergency department today because of worsening shortness of breath and cough and wheezing. Her symptoms have been progressively getting worse over the past 4-5 days. The patient was diagnosed having an acute bronchitis by her primary care physician and the patient was given a course of Augmentin and she continued to do her routine bronchodilators at home. Her condition was getting worse and she was not getting much of relief. She was over utilizing albuterol solution and at that point she decided to come into the hospital for further evaluation. She was mainly concerned of having underlying pneumonia. Chest x- ray was done and showed stable findings. The patient was admitted for an acute exacerbation of COPD/asthma. She admits to have some chills. No documented fever. Her was recently sick with influenza beginning of this week. In emergency department, the patient was afebrile with a temperature of 98.3. Pulse ox was 91% on room air. She was awake and alert and there was no reported mental status change. Chest x-ray showed no acute abnormalities. Minimal right and left basilar pleural effusion as the patient has some limited blunting of the costophrenic angles. Note that this patient is well known to me and she has history of COPD/asthma and she has of the 1 disease, SZ phenotype with previous history of multiple exacerbations who has been maintained on a combination of Brie and Spiriva and theophylline and she is coming in for a follow-up. this patient is smoking around half pack of cigarettes aday. The patient has a previous spirometry in 2011 and she showed an FEV1 of 52% of predicted. Diffusion capacity of 67% of predicted. Her previous HRCT of the chest was negative. A subsequent pulmonary function test that was done in June 2015 showed an FEV1 of 46% of predicted and post bronchodilation the FEV1 was 51% of predicted and a diffusion capacity was 55% of predicted. She was losing weight and in July 2015 she had gained around 10 pounds and this occurred after she lost around 50-60 pounds. On outpatient basis, the patient was receiving Breo ellipta and Spiriva and theophylline and low-dose prednisone of 10 mg by mouth daily. Her prednisone was further cut down to 5 mg by mouth daily which failed as the patient became sick and weak and she decided to go back on 10 mg maintenance. She has also undergone atrial fibrillation ablation in current rhythm is sinus. Review of Systems Constitutional Constitutional: weight gain (20lbs), lethargy (sleepiness and fatigue) Eyes Eyes: vision change (cataracts and eyelid surgeries in the past) ENMT Ears: no difficulty hearing, no ear pain Nose: no frequent nosebleeds, no nose problems, no sinus problems Mouth/Throat: no sore throat, no bleeding gums, no mouth ulcers, no teeth problems, snoring, dry mouth, mouth breathing Cardiovascular Cardiovascular: no chest pain, no arm pain on exertion, no shortness of breath when walking, no shortness of breath when lying down, no palpitations, no known heart murmur Respiratory Respiratory: wheezing, shortness of breath, sleep apnea Gastrointestinal Gastrointestinal: no abdominal pain, no nausea, no vomiting, no constipation, normal appetite, no diarrhea, not vomiting blood, no dyspepsia, no GERD Genitourinary Genitourinary: no incontinence, no difficulty urinating, no hematuria, no increased frequency Musculoskeletal Musculoskeletal: no muscle aches, no muscle weakness, no swelling in the extremities, arthralgias/joint pain, back pain (knee OA, and) Integumentary Skin: no abnormal mole, no jaundice, no rashes, no laceration Neurologic Neurologic: no loss of consciousness, no weakness, no numbness, no seizures, no dizziness, no migraines, no headaches, no tremor Psychiatric Psych: no depression, feeling safe in a relationship, no alcohol abuse, no hallucinations, no suicidal thoughts, anxiety Endocrine Endocrine: no fatigue Hematologic/Lymphatic Hematologic/Lymphatic no swollen glands, no bruising, no excessive bleeding Allergic/Immunologic Allergy/Immunologic: no runny nose, no sinus pressure, no itching, no hives, no frequent sneezing Screening Past Medical History Past Medical History: Atrial Fibrillation, Asthma, Chest Pain / Angina, COPD, Diabetes Mellitus, Fibromyalgia, GERD/Reflux, Hypertension, Liver Disease, Musculoskeletal Disorder, Osteoarthritis (OA), Pneumonia, Thyroid Disorder Additional Past Medical History / Comment(s): COPD/asthma, alpha-1 disease with SZ phenotype, obstructive sleep apnea, obesity, atrial fibrillation, kidney stones, peripheral neuropathy involving the lower extremities, degenerative arthritis and chronic neck and back pain, right-sided fractures history of, hyperlipidemia, fibromyalgia, acid reflux History of Any Multi-Drug Resistant Organisms: MRSA Date of last positivie culture/infection: 2013 MDRO Source:: rt leg Past Surgical History: Breast Surgery, Section, Tubal Ligation, Uterine Ablation Additional Past Surgical History / Comment(s): Left breast lump removal, benign , bilateral cataracts, colonoscopy, laparoscopy, ablation of atrial fibrillation back in September 2015 Past Anesthesia/Blood Transfusion Reactions: No Reported Reaction, Family History of Problems w/ Anesthesia Additional Past Anesthesia/Blood Transfusion Reaction / Comment(s): HX OF BLOOD TRANSFUSION - NO REACTION. SISTER HAS PONV Past Psychological History: Anxiety, Depression, PTSD Smoking Status: Current every day smoker Past Alcohol Use History: None Reported Past Drug Use History: None Reported - Past Family History Mother Family Medical History: Cancer Additional Family Medical History / Comment(s): BREAST CANCER Father Family Medical History: Diabetes Mellitus Additional Family Medical History / Comment(s): ETOH, FROM AN INFECTION. Medications and Allergies Home Medications Medication Instructions Recorded Confirmed Type Albuterol Inhaler [Ventolin Hfa 2 puff INHALATION RT-Q6H PRN 12/20/14 08/08/17 History Inhaler] Ergocalciferol (Vitamin D2) 50,000 unit PO Q14D 12/20/14 08/08/17 History [Drisdol] Nitroglycerin Sl Tabs [Nitrostat] 0.4 mg SUBLINGUAL Q5M PRN 12/20/14 08/08/17 History Tiotropium [place] [Spiriva] 18 mcg INHALATION RT-DAILY 12/20/14 08/08/17 History DULoxetine HCL [Cymbalta] 90 mg PO DAILY 08/03/15 08/08/17 History Fluticasone/Vilanterol [Breo 1 puff INHALATION RT-DAILY 08/03/15 08/08/17 History Ellipta 200-25 Mcg INH] Rivaroxaban [Xarelto] 20 mg PO HS 08/03/15 08/08/17 History Theophylline 24 Hour [Joby-24] 200 mg PO HS 08/03/15 08/08/17 History Albuterol Nebulized [Ventolin 2.5 mg INHALATION RT-Q6H PRN 09/20/15 08/08/17 History Nebulized] Ibuprofen [Motrin] 800 mg PO TID PRN 09/20/15 08/08/17 History Magnesium Oxide [Mag-Ox] 400 mg PO HS 09/20/15 08/08/17 History Diazepam [Valium] 5 mg PO QID PRN 10/03/15 08/08/17 History Nystatin 100,000 Unit/ml Susp 5 ml PO QID 10/03/15 08/08/17 History [Mycostatin Oral Susp] Baclofen [Lioresal] 5 mg PO TID PRN 02/16/17 08/08/17 History Calcitonin,[place],Synthetic 1 spray EA NOSTRIL DAILY 02/16/17 08/08/17 History [Miacalcin] EPINEPHrine (Auto Inject) [Epipen] 0.3 mg IM ONCE PRN 02/16/17 08/08/17 History Ferrous Sulfate [Feosol] 325 mg PO DAILY 02/16/17 08/08/17 History Fluticasone Nasal [place] [Flonase 2 spr EA NOSTRIL DAILY PRN 02/16/17 08/08/17 History Nasal [place]] Montelukast Sodium [Singulair] 10 mg PO HS 02/16/17 08/08/17 History Omeprazole [PriLOSEC] 20 mg PO HS 02/16/17 08/08/17 History oxyCODONE HCL 15 mg PO Q4H PRN 02/16/17 08/08/17 History ARIPiprazole [Abilify] 5 mg PO DAILY 08/08/17 08/08/17 History Amoxic-Pot Clav 875-125Mg 1 tab PO Q12HR 08/08/17 08/08/17 History [Augmentin 875-125] guaiFENesin [Mucinex] 600 mg PO Q12H 08/08/17 08/08/17 History predniSONE 10 mg PO DAILY 08/08/17 08/08/17 History Allergies Allergy/AdvReac Type Severity Reaction Status Date / Time ciprofloxacin Allergy Unknown Unknown Verified 08/08/17 12:24 gabapentin Allergy Unknown Unknown Verified 08/08/17 12:24 acetaminophen [From Tylenol] Allergy Unknown Verified 08/08/17 12:24 cephalexin [From Keflex] Allergy Unknown Verified 08/08/17 12:24 lovastatin Allergy Unknown Verified 08/08/17 12:24 moxifloxacin HCl Allergy Anaphylaxis Verified 08/08/17 12:24 [From Avelox] pravastatin Allergy Unknown Verified 08/08/17 12:24 pregabalin [From Lyrica] Allergy Unknown Verified 08/08/17 12:24 simvastatin Allergy Unknown Verified 08/08/17 12:24 sulfamethoxazole Allergy Unknown Verified 08/08/17 12:24 [From Bactrim] trimethoprim [From Bactrim] Allergy Unknown Verified 08/08/17 12:24 codeine AdvReac Nausea & Verified 08/08/17 12:24 Vomiting verapamil AdvReac Nausea & Verified 08/08/17 12:24 Vomiting Physical Exam Vitals: Vital Signs Temp Pulse Resp BP Pulse Ox 08/08/17 13:35 95 22 143/67 91 L 08/08/17 12:07 97 08/08/17 11:55 96 08/08/17 11:40 92 08/08/17 11:10 98.3 F 93 24 140/66 91 L Intake and Output 08/07/17 08/08/17 08/08/17 22:59 06:59 14:59 Intake Total 250 Balance 250 Intake: Intake, IV Titration 250 Amount Azithromycin 500 mg In 250 Sodium Chloride 0.9% 250 ml @ 125 mls/hr IVPB ONCE STA Rx#:[id number] Other: Weight 106.141 kg General Appearance no diaphoresis, no respiratory distress, speech not interrupted by breaths, no dyspnea, no pallor, not cachectic, well nourished, appears well, morbid obesity HEENT no pursed lip breathing, no jugular venous distention, no mucous membrane cyanosis, no perioral cyanosis, mallampati classification: class 1, Mallampati Classification: Class 4 Chest no barrel chest, no retractions, no sternocleidomastoid muscle contractions, no supraclavicular retractions, no intercostal retractions, no decreased air movement, no rhonchi, no hyperinflation, prolonged expiratory wheezing, decreased air movement Heart no right ventricular heave, no distant heart sounds, no s3 gallop Extremities no cyanosis, no clubbing, no edema Neurologic no decreased mental status, no somnolence, no confusion GI bowel sounds: hyperactive (borborygmi), bowel sounds: diminished or absent Results - Laboratory Findings CBC and BMP: 08/08/17 12:00 08/08/17 12:00 Abnormal lab findings: Abnormal Labs 08/08/17 08/08/17 12:00 12:00 RBC 5.55 H Hct 46.2 H Neutrophils # 8.9 H Lymphocytes # 0.5 L Sodium 146 H Creatinine 0.50 L Glucose 117 H Magnesium 2.5 H AST 56 H - Diagnostic Findings Chest x-ray: image reviewed Assessment and Plan Plan: Assessment 1 acute exacerbation of chronic COPD, with secondary shortness of breath 2 COPD of a moderate severity with an FEV1 of 52% of predicted and diffusion capacity of 67% of predicted. Patient has been maintained on a combination of Spiriva, Vero, theophylline and low-dose prednisone of 10 mg on a daily basis 3 alpha-1 antitrypsin deficiency, SZ phenotype 4 chronic atrial fibrillation status post ablation current rhythm is sinus still on anticoagulation with Xarelto 5 smoker 6 hyperlipidemia 7 mild REM specific obstructive sleep apnea, not receiving any treatment for now 8 obesity with BMI of 36.6 9 peripheral neuropathy 10 fibromyalgia 11 cataracts, bilateral 12 comorbidities all mentioned above in history of present illness Plan Check influenza nasal swab for A and B. Put the patient on DuoNeb about treatments around the clock. IV Solu Medrol 60 mg every 6 hours. Empiric antibiotic coverage with Zithromax 500 mg on a daily basis. Sputum Gram stain and culture if possible. Chest x-ray was reviewed and showed small bilateral pleural effusion. Restrict fluids. Mucinex DM for cough and congestion. We' ll continue to follow an outpatient medication be ordered resume.
--- NOTE | 2017-08-09 13:12 | P.PN ---
Subjective Progress Note Date: 08/09/17 46-year-old female patient with known history of COPD/asthma who came into the emergency department today because of worsening shortness of breath and cough and wheezing. Her symptoms have been progressively getting worse over the past 4-5 days. The patient was diagnosed having an acute bronchitis by her primary care physician and the patient was given a course of Augmentin and she continued to do her routine bronchodilators at home. Her condition was getting worse and she was not getting much of relief. She was over utilizing albuterol solution and at that point she decided to come into the hospital for further evaluation. She was mainly concerned of having underlying pneumonia. Chest x- ray was done and showed stable findings. The patient was admitted for an acute exacerbation of COPD/asthma. She admits to have some chills. No documented fever. Her was recently sick with influenza beginning of this week. In emergency department, the patient was afebrile with a temperature of 98.3. Pulse ox was 91% on room air. She was awake and alert and there was no reported mental status change. Chest x-ray showed no acute abnormalities. Minimal right and left basilar pleural effusion as the patient has some limited blunting of the costophrenic angles. Note that this patient is well known to me and she has history of COPD/asthma and she has of the 1 disease, SZ phenotype with previous history of multiple exacerbations who has been maintained on a combination of Brie and Spiriva and theophylline and she is coming in for a follow-up. this patient is smoking around half pack of cigarettes aday. The patient has a previous spirometry in 2011 and she showed an FEV1 of 52% of predicted. Diffusion capacity of 67% of predicted. Her previous HRCT of the chest was negative. A subsequent pulmonary function test that was done in June 2015 showed an FEV1 of 46% of predicted and post bronchodilation the FEV1 was 51% of predicted and a diffusion capacity was 55% of predicted. She was losing weight and in July 2015 she had gained around 10 pounds and this occurred after she lost around 50-60 pounds. On outpatient basis, the patient was receiving Breo ellipta and Spiriva and theophylline and low-dose prednisone of 10 mg by mouth daily. Her prednisone was further cut down to 5 mg by mouth daily which failed as the patient became sick and weak and she decided to go back on 10 mg maintenance. She has also undergone atrial fibrillation ablation in current rhythm is sinus. On 08/09/2017, the patient is feeling better and the patient is less short of breath compared to yesterday. The patient was confirmed to have influenza type a infection and the patient is currently on Tamiflu. She is also on accommodation bronchodilators and steroids. She is feeling better and she wants to go home and completed treatment in outpatient basis. No chest pain. No pleurisy. No hemoptysis. No altered mentation. Objective - Vital Signs Vital signs: Vital Signs Temp 97.0 F L 08/09/17 07:00 Pulse 92 08/09/17 11:09 Resp 18 08/09/17 08:00 BP 144/93 08/09/17 07:00 Pulse Ox 97 08/09/17 07:29 Intake & Output 08/08/17 08/09/17 08/09/17 18:59 06:59 18:59 Intake Total 250 1320 Balance 250 1320 Weight 106.141 kg 106.141 kg Intake: Intake, IV Titration 250 Amount Azithromycin 500 mg In 250 Sodium Chloride 0.9% 250 ml @ 125 mls/hr IVPB ONCE STA Rx#:[id number] Oral 1320 Other: # Voids 1 - Exam General Appearance no diaphoresis, no respiratory distress, speech not interrupted by breaths, no dyspnea, no pallor, not cachectic, well nourished, appears well, morbid obesity HEENT no pursed lip breathing, no jugular venous distention, no mucous membrane cyanosis, no perioral cyanosis, mallampati classification: class 1, Mallampati Classification: Class 4 Chest no barrel chest, no retractions, no sternocleidomastoid muscle contractions, no supraclavicular retractions, no intercostal retractions, no decreased air movement, no rhonchi, no hyperinflation, prolonged expiratory wheezing, decreased air movement Heart no right ventricular heave, no distant heart sounds, no s3 gallop Extremities no cyanosis, no clubbing, no edema Neurologic no decreased mental status, no somnolence, no confusion GI bowel sounds: hyperactive (borborygmi), bowel sounds: diminished or absent Examination of the skin revealed no evidence of significant rashes, suspicious appearing nevi or other concerning lesions. - Labs CBC & Chem 7: 08/08/17 12:00 08/08/17 12:00 Labs: Abnormal Lab Results - Last 24 Hours (Table) 08/08/17 08/08/17 08/09/17 Range/Units 14:20 16:49 12:22 POC Glucose (mg/dL) 234 H 117 H (75-99) mg/dL Influenza Type A RNA Detected H (Not Detectd) Assessment and Plan Plan: Assessment 1 acute exacerbation of chronic COPD, with secondary shortness of breath, secondary to an influenza type a tracheobronchitis 2 COPD of a moderate severity with an FEV1 of 52% of predicted and diffusion capacity of 67% of predicted. Patient has been maintained on a combination of Spiriva, Breo, theophylline and low-dose prednisone of 10 mg on a daily basis 3 alpha-1 antitrypsin deficiency, SZ phenotype 4 chronic atrial fibrillation status post ablation current rhythm is sinus still on anticoagulation with Xarelto 5 smoker 6 hyperlipidemia 7 mild REM specific obstructive sleep apnea, not receiving any treatment for now 8 obesity with BMI of 36.6 9 peripheral neuropathy 10 fibromyalgia 11 cataracts, bilateral 12 comorbidities all mentioned above in history of present illness Plan The patient is improving. The patient can be discharged home on Tamiflu, prednisone burst taper in addition to her routine pulmonary medications. The patient is to be followed up in the office
[2017-08-09 19:42] LABS: Hemoglobin A1C 5.8 % (4.0-6.0)
--- NOTE | 2017-09-01 10:32 | CDI ---
Last Revision, April 2017 Documentation Clarification Form Date: 09/01/17 From: Tressa Keller Phone: If you have a question regarding this query, please contact Betsy Ferrell at [phone] between 8am and 5pm Admit Date: 08/08/2017 12:47:00 PM Patient Name: Beth Allen Visit Number: [id number] Discharge Date: 08/09/17 ATTENTION: The Clinical Documentation Specialists (CDI) and [facility] Coding Staff appreciate your assistance in clarifying documentation. Please respond to the clarification below the line at the bottom and electronically sign. The CDI & [facility] Coding staff will review the response and follow-up if needed. Please note: Queries are made part of the Legal Health Record. If you have any questions, please contact the author of this message via ITS. Dr. Concepcion Turner Conflicting documentation has been found in the medical record. Per your H&P and discharge summary, the patient was admitted for acute respiratory failure due to acue asthma exacerbation. Per the pulmonary consult , the patient had an acute exacerbation of COPD with shortness of breath secondary to influenza tracheobronchitis. History/Risk Factors: Patient has a history of severe persistent asthma and was diagnosed with Influenza A and acute tracheobronchitis. Clinical Indicators: Hypoxia and shortness of breath. Vital signs: T. 98.3, P. 93, R. 24, BP 140/66, Pulse ox. 91 Treatment: Albuterol, Symbicort and atrovent inhalation, IV Solu-Medrol, IV Zithromax In your opinion what is the most clinically appropriate diagnosis for this patient? Severe Persistent Asthma with exacerbation COPD exacerbation Asthma and COPD exacerbation Other explanation of clinical findings Unable to determine (no explanation for clinical findings) Severe persistent asthma with exacerbation. MTDD
== END 2017-08-09 12:35 | disposition home or self-care (01) | DRG 202 ==
LOC: EC 11:01 → 4MS4W 12:47 → 5MS5E 13:04
PROVIDERS: ADMIT Internal Medicine; ATTEND Internal Medicine
DX: J45.51 Severe persistent asthma with (acute) exacerbation (principal); J96.01 Acute respiratory failure with hypoxia; J44.0 Chronic obstructive pulmonary disease with (acute) lower respiratory infection; E11.40 Type 2 diabetes mellitus with diabetic neuropathy, unspecified; E88.01 Alpha-1-antitrypsin deficiency; E66.01 Morbid (severe) obesity due to excess calories; E55.9 Vitamin D deficiency, unspecified; E78.5 Hyperlipidemia, unspecified; F17.210 Nicotine dependence, cigarettes, uncomplicated; F32.9 Major depressive disorder, single episode, unspecified; F43.10 Post-traumatic stress disorder, unspecified; G47.33 Obstructive sleep apnea (adult) (pediatric); G89.4 Chronic pain syndrome; I11.9 Hypertensive heart disease without heart failure; J10.1 Influenza due to other identified influenza virus with other respiratory manifestations; J20.9 Acute bronchitis, unspecified; K21.9 Gastro-esophageal reflux disease without esophagitis; M50.30 Other cervical disc degeneration, unspecified cervical region; M79.7 Fibromyalgia; E07.9 Disorder of thyroid, unspecified; M19.90 Unspecified osteoarthritis, unspecified site; F41.9 Anxiety disorder, unspecified; I48.2 Chronic atrial fibrillation; Z68.36 Body mass index [BMI] 36.0-36.9, adult; Z79.01 Long term (current) use of anticoagulants; Z79.52 Long term (current) use of systemic steroids; Z79.899 Other long term (current) drug therapy; Z87.442 Personal history of urinary calculi; Z88.6 Allergy status to analgesic agent; Z88.1 Allergy status to other antibiotic agents; Z88.5 Allergy status to narcotic agent; Z88.2 Allergy status to sulfonamides; Z88.8 Allergy status to other drugs, medicaments and biological substances; Z86.14 Personal history of Methicillin resistant Staphylococcus aureus infection; Z87.01 Personal history of pneumonia (recurrent); Z98.51 Tubal ligation status; Z98.42 Cataract extraction status, left eye; Z98.41 Cataract extraction status, right eye; Z96.1 Presence of intraocular lens; Z80.3 Family history of malignant neoplasm of breast; Z82.49 Family history of ischemic heart disease and other diseases of the circulatory system; Z83.3 Family history of diabetes mellitus
CPT/HCPCS: 36415; 71046; 80053; 83036; 83735; 85025; 87502; 94640; 94644; 94760; 96365; 96375; 99285

== ENCOUNTER → 2017-11-20 | Outpatient (CLI) | payer MEDICARE, OTHER ==
[2017-11-20 08:20] LABS: Anisocytosis Slight; Basophils # (A) 0.1 k/uL (0-0.2); Basophils % (A) 1 %; Eosinophils # (A) 0.2 k/uL (0-0.7); Eosinophils % (A) 2 %; HCT 52.4 % (34.0-46.0); HGB 15.2 gm/dL (11.4-16.0); Hypochromasia Marked; Lymphocytes # (A) 3.3 k/uL (1.0-4.8); Lymphocytes % (A) 24 %; MCH 22.9 pg (25.0-35.0); MCV 78.9 fL (80.0-100.0); Mean Platelet Volume 6.7; Microcytosis Slight; Monocytes # (A) 0.7 k/uL (0-1.0); Monocytes % (A) 5 %; Neutrophils # (A) 9.1 k/uL (1.3-7.7); Neutrophils % (A) 68 %; Platelet Count 227 k/uL (150-450); RBC 6.64 m/uL (3.80-5.40); WBC 13.5 k/uL (3.8-10.6)
[2017-11-20 08:47] LABS: ALT 28 U/L (9-52); AST 18 U/L (14-36); Albumin 3.7 g/dL (3.5-5.0); Alkaline Phosphatase 74 U/L (38-126); Anion Gap 7 mmol/L; Blood Urea Nitrogen 18 mg/dL (7-17); Calcium 9.2 mg/dL (8.4-10.2); Carbon Dioxide 34 mmol/L (22-30); Chloride 101 mmol/L (98-107); Glucose 87 mg/dL (74-99); Potassium 3.9 mmol/L (3.5-5.1); Sodium 142 mmol/L (137-145); Total Bilirubin 0.5 mg/dL (0.2-1.3); Total Protein 5.9 g/dL (6.3-8.2)
--- NOTE | 2017-11-20 09:02 | US ---
EXAMINATION TYPE: US liver DATE OF EXAM: 11/20/2017 COMPARISON: US of 02/25/2017 CLINICAL HISTORY: E88.01 [id number] deficiency. EXAM MEASUREMENTS: Liver Length: 13.5 cm Gallbladder Wall: 0.3 cm CBD: 0.3 cm Right Kidney: 11.1 x 4.5 x 5.5 cm technically difficult exam due to body habitus and bowel gas. Pancreas: visualized portions wnl Liver: difficult to penetrate. Coarsened hepatic echotexture is similar to the prior of 02/25/2017 r elated to known underlying hepatocellular disease. No focal masses identified on today's examination. Gallbladder: No stones seen Evidence for sonographic Greco's sign: CBD: wnl Right Kidney: No hydronephrosis or masses seen IMPRESSION: Unchanged mildly coarsened hepatic echotexture in comparison to the prior exam of 017. No focal hepatic masses identified on today's examination.
== END | disposition home or self-care (01) ==
LOC: RADUSWWP 07:41
DX: R93.2 Abnormal findings on diagnostic imaging of liver and biliary tract (principal); E88.01 Alpha-1-antitrypsin deficiency
CPT/HCPCS: 36415; 76705; 80053; 82105; 85025

== ENCOUNTER → 2018-09-16 | Outpatient (CLI) | payer MEDICARE, OTHER ==
--- NOTE | 2018-09-16 21:43 | BD ---
EXAMINATION TYPE: Axial Bone Density DATE OF EXAM: 09/16/2018 CLINICAL HISTORY: Height: 64.50 Weight: 205 FRAX RISK QUESTIONS: Alcohol (3 or more units per day): no Family History (Parent hip fracture): no Glucocorticoids (More than 3mos): yes (Ex: prednisone, prednisolone, methylprednisolone, dexamethasone, and hydrocortisone). History of Fracture in Adulthood: yes; ribs, foot Secondary Osteoporosis: 1. Type 1 Diabetes: no 2. Hyperthyroidism: no 3. Menopause before 45: ablation late 30's 4. Malnutrition: no 5. Chronic liver disease: YES(alpha 1) Rheumatoid Arthritis: no Current Tobacco Use: yes RISK FACTORS HISTORY OF: Family History of Osteoporosis: yes Active: yes Diet low in dairy products/other sources of calcium: at least one serving a day Postmenopausal woman: ablation uterus Take estrogen and/or progesterone medications: no Lost more than 2 inches in height since high school: yes Frequent falls: no Poor Health: yes Hyperparathyroidism: no Adrenal Insufficiency: no MEDICATIONS: Prednisone or other steroids: yes How Long: about 10 years Thyroid Medications: no Osteoporosis Medications: not now Which medication: Miacalcin How Long: one week Additional Medications: Additional History: type 2 diabetic(no meds), heart ablation EXAM MEASUREMENTS: Bone mineral densitometry was performed using the [employer] System. Bone mineral density as measured about the Lumbar spine is: ----- L1-L4(G/cm2): 0.871 T Score Values are as follows: ----- L2: -1.8 ----- L3: -2.3 ----- L4: -3.8 ----- L1-L4: -2.6 Bone mineral density not previously done at this facility Bone mineral density about the R hip (g/cm2): 0.766 Bone mineral density about the L hip (g/cm2): 0.727 T Score values are as follows: -----R Neck: -2.0 -----L Neck: -2.2 -----R Total: -2.0 -----L Total: -2.2 Bone mineral density not previously done at this facility IMPRESSION: Osteoporosis (T Score less than -2.5) identified overall in the low back. There is increased fracture risk and therapy is usually indicated based on age. Re-Screen 1-2 years. NOTE: T-SCORE=SD OF THE YOUNG ADULT MEAN.
== END | disposition home or self-care (01) ==
LOC: RADBDWWP 13:02
PROVIDERS: ATTEND Internal Medicine Critical Care Medicine
DX: M81.0 Age-related osteoporosis without current pathological fracture (principal); Z51.81 Encounter for therapeutic drug level monitoring; Z79.52 Long term (current) use of systemic steroids
CPT/HCPCS: 77080